=== PATIENT | male | born 1950 | race Caucasian/White ===

== ENCOUNTER → 2016-06-09 | Day surgery (SDC) | payer MEDICARE ==
[~2016-06-09] MED LIST: ATOR80TA PO; EFFE37.5 PO; FENO1TAB76 PO; LACTATED RINGER'S 1000 ML INJ 1,000 ML ONE; NAPR220T95 PO; PREV30CA36 PO; PROPOFOL 500 MG/50 ML BTL IV ONE; THERM PO; VITA100020 IM; VITATAB25 PO; WARF5 PO; WARF5TAB PO; ZYRT10TA12 PO; [UNRECOGNIZED DRUG - CODE] PO
== END | disposition home or self-care (01) ==
LOC: ESDC 07:56
PROVIDERS: ATTEND Internal Medicine Gastroenterology
DX: Z12.11 Encounter for screening for malignant neoplasm of colon (principal); D12.2 Benign neoplasm of ascending colon; D12.5 Benign neoplasm of sigmoid colon; K21.9 Gastro-esophageal reflux disease without esophagitis; K22.9 Disease of esophagus, unspecified; K29.70 Gastritis, unspecified, without bleeding; K44.9 Diaphragmatic hernia without obstruction or gangrene
CPT/HCPCS: 00740; 00810; 43239; 45385; 45388; 88305; J3010; J7120

== ENCOUNTER → 2016-07-04 | Day surgery (SDC) | payer MEDICARE ==
[~2016-07-04] MED LIST changes: +ACETAMINOPHEN 1000 MG/100 ML VIAL IV ONE; +BUPIVACAINE/EPINEPHRINE 0.25% PF 30 ML VIAL ONE; +MIDAZOLAM HCL 2 MG/2 ML VIAL ONE; +ONDANSETRON HCL 4 MG/2 ML VIAL IV PUSH ONE; +PROPOFOL 200 MG/20 ML AMP IV ONE; -PROPOFOL 500 MG/50 ML BTL IV ONE; +ceFAZolin 2 GM PREMIX 50 ML ONE
--- NOTE | 2016-07-04 12:59 | TN ---
cc: GARRETT CRAIG MD DATE OF SURGERY 07/04/2016 PREOPERATIVE DIAGNOSIS Right inguinal hernia POSTOPERATIVE DIAGNOSIS Right inguinal hernia, spermatic cord lipoma PROCEDURE Right inguinal hernia repair with mesh, excision of right spermatic cord lipoma. SURGEON Garrett Craig MD [employer] Lisa ANESTHESIA General via LMA. OPERATIVE FINDINGS The patient had a large direct right inguinal hernia. He had a spermatic cord lipoma which was excised. PROCEDURE IN DETAIL The patient was taken to the operating room, placed in supine position. General anesthesia via LMA was induced. The right groin was prepped and draped in the usual sterile fashion. Surgical time-out was performed to verify correct patient, procedure and site. The patient received appropriate perioperative antibiotics. A right inguinal incision was made. Dissection was carried out down through subcutaneous tissue with electrocautery. The external oblique fascia was identified and cut and nicked in line with the fibers using the Metzenbaum scissors taking care to avoid the underlying nerves. The external deep fascial incision was extended to the external ring and also laterally. The spermatic cord was isolated with a Daniel drain. The patient was noted have a large direct inguinal hernia near the epigastric vessels and actually pushing the epigastric vessels outward some. The distal lateral direct space was closed using interrupted 2-0 Vicryl sutures to reduce the preperitoneal fat which had prolapsed through the defect. The internal ring was inspected and noted to have spermatic cord lipoma which was excised. There was no indirect inguinal hernia identified, although the indirect ring was somewhat enlarged. The epigastric vein was injured and required ligation using a 3-0 Vicryl suture. There was minimal blood loss. An Ultrapro lightweight polypropylene mesh was cut to size approximately 8 x 15 cm. It was tapered at one end. The tapered end was sutured in place to the pubis using 0 Ethibond suture. A sutured along the shelving edge with interrupted 0 Ethibond sutures. A slit was cut and the mesh placed around the internal ring to recreate it. Sutures were placed on either side of the internal ring in the mesh to make an appropriate size and admit the tip of my finger. The mesh was affixed to the conjoined tendon and internal oblique with interrupted 0 Ethibond. Laterally, the edges were tucked under the external oblique fascia. There was good coverage of the entire inguinal floor. There was hemostasis in the operative field. The external oblique was closed with a running 3-0 Vicryl suture to recreate the external ring. Valencia's fascia was closed with simple interrupted 3-0 Vicryl and skin with subcuticular 4-0 Monocryl and Dermabond. The patient tolerated procedure well, was extubated and taken to PACU in stable condition. MD SMITHA Carrasco/ANTELMO /12:43 PM /12:50 PM
== END | disposition home or self-care (01) ==
LOC: ESDC 09:22
PROVIDERS: ATTEND Surgery
DX: K40.90 Unilateral inguinal hernia, without obstruction or gangrene, not specified as recurrent (principal); D17.6 Benign lipomatous neoplasm of spermatic cord
CPT/HCPCS: 00830; 49505; 55520; C1781; J0131; J0690; J2250; J2405; J3010; J7120